=== PATIENT | male | born 1955 | race Caucasian/White ===

== ENCOUNTER 2022-04-21 10:53 | Inpatient (IN) ==
[2022-04-21 12:11] LABS: Basophils % 0.3 %; Eosinophils # 0.1 K/mcL (0.0-0.6); Eosinophils % 0.6 %; Hematocrit 36.2 % (37.5-50.1); Hemoglobin 12.1 g/dL (12.9-16.9); Immature Granulocytes % 0.6 % (0-4); Lymphocytes # 0.6 K/mcL (0.6-4.6); Lymphocytes % 5.4 %; Mean Corpuscular HGB Conc 33.4 g/dL (31.6-35.5); Mean Corpuscular Hemoglobin 31.1 pg (28.0-33.3); Mean Corpuscular Volume 93.1 fL (83.0-100.0); Mean Platelet Volume 10.4 fL (9.4-12.4); Monocytes # 0.7 K/mcL (0.0-1.3); Neutrophils # 10.1 K/mcL (1.6-8.9); Platelet Count 369 K/mcL (140-400); Red Blood Count 3.89 M/mcL (4.19-5.50); Red Cell Distribution Width 13.6 % (11.5-14.5); Segmented Neutrophils % 87.1 %; White Blood Count 11.6 K/mcL (4.3-11.1)
[2022-04-21 12:38] LABS: Calcium 9.1 mg/dL (8.6-10.3); Potassium 4.4 mEq/L (3.5-5.1); Troponin I 0.03 ng/mL (< 0.04)
[2022-04-21] MEDS ORDERED: Iopamidol - 370 500 ML MLS IVP ONE (13:25)
[2022-04-21 13:56] LABS: INR 2.4; Prothrombin Time 26.7 Seconds (9.4-12.1)
[2022-04-21 14:46] LABS: VBG HCO3 14 mEq/L (21-27); VBG PCO2 31 mmHg (41-51); VBG PH 7.24 pH Units (7.32-7.42); VBG PO2 38 mmHg (25-50)
[2022-04-21] MEDS ORDERED: Ondansetron 4 MG/2 ML VIAL IVP PRN (15:00)
[2022-04-21] MEDS ORDERED: Acetaminophen 325 MG TABLET PO PRN (15:00)
[2022-04-21] MEDS ORDERED: Naloxone 0.4 MG/ML INJ IVP PRN (15:00)
[2022-04-21] MEDS ORDERED: Sodium Bicarbonate 150 MEQ in Water for inj. (sterile) 1,000 ML IVC SCH (15:00)
[2022-04-21] MEDS ORDERED: Melatonin 3 MG TABLET PO PRN (15:00)
[2022-04-21] MEDS: *HR* Heparin 5,000 UNIT/ML VIAL SQ SCH ×2 (15:40→21:13)
[2022-04-21] MEDS: Dexamethasone Sodium Phos/PF 10 MG/ML VIAL IVP SCH (15:41)
[2022-04-21 18:48] LABS: Albumin 3.4 g/dL (3.5-5.7); Albumin/Globulin Ratio 0.9 (1.1-2.2); Bilirubin,Direct 0.1 mg/dL (0.0-0.2); Bilirubin,Indirect 0.6 mg/dL (0.0-1.0); Bilirubin,Total 0.7 mg/dL (0.3-1.0); Total Protein 7.4 g/dL (6.4-8.9)
[2022-04-21] MEDS ORDERED: cefTRIAXone 1,000 MG in 0.9 % Sodium Chloride 10 ML IVP SCH (21:00)
[2022-04-21] MEDS ORDERED: Azithromycin 500 MG in 0.9 % Sodium Chloride 250 ML IVPB SCH (21:00)
[2022-04-22] MEDS: *HR* Heparin 5,000 UNIT/ML VIAL SQ SCH ×3 (05:58→21:18)
[2022-04-22] MEDS: Dexamethasone Sodium Phos/PF 10 MG/ML VIAL IVP SCH ×2 (09:32→13:55)
[2022-04-22] MEDS: Azithromycin 250 MG TABLET PO SCH (09:32)
[2022-04-22] MEDS: Cefdinir 300 MG CAPSULE PO SCH (10:20)
[2022-04-22 11:02] LABS: Prothrombin Time 22.5 Seconds (9.4-12.1)
[2022-04-22 11:56] LABS: Calcium 8.7 mg/dL (8.6-10.3); Magnesium 2.8 mg/dL (1.6-2.6); Phosphorous 4.3 mg/dL (2.7-4.5)
[2022-04-23 03:59] LABS: Calcium 8.3 mg/dL (8.6-10.3); Potassium 4.1 mEq/L (3.5-5.1)
[2022-04-23] MEDS: *HR* Heparin 5,000 UNIT/ML VIAL SQ SCH (05:21)
[2022-04-23] MEDS: Cefdinir 300 MG CAPSULE PO SCH (09:43)
[2022-04-23] MEDS: Azithromycin 250 MG TABLET PO SCH (09:43)
[2022-04-23] MEDS: Dexamethasone Sodium Phos/PF 10 MG/ML VIAL IVP SCH (09:44)
[2022-04-23] MEDS: Valsartan 80 MG TABLET PO SCH (18:27)
[2022-04-23] MEDS: amLODIPine 5 MG TABLET PO SCH (18:29)
[2022-04-23] MEDS: Apixaban 5 MG TABLET PO SCH (22:20)
[2022-04-24 03:44] VITALS: BP 94/63; PULSE 55; TEMP 97.8; O2SAT 94
[2022-04-24 05:25] LABS: Calcium 8.5 mg/dL (8.6-10.3); Potassium 4.7 mEq/L (3.5-5.1)
[2022-04-24] MEDS ORDERED: allopurinoL 300 MG TABLET PO SCH (09:00)
[2022-04-24] MEDS ORDERED: Aspirin Enteric Coated 81 MG Tablet PO SCH (09:00)
[2022-04-24] MEDS: amLODIPine 5 MG TABLET PO SCH (09:24)
[2022-04-24] MEDS: Azithromycin 250 MG TABLET PO SCH (09:24)
[2022-04-24] MEDS: Cefdinir 300 MG CAPSULE PO SCH (09:24)
[2022-04-24] MEDS: Apixaban 5 MG TABLET PO SCH (09:25)
[2022-04-24] MEDS: Valsartan 80 MG TABLET PO SCH (09:26)
[2022-04-24] MEDS ORDERED: Valsartan 80 MG TABLET PO SCH (18:00)
== END 2022-04-24 17:07 | disposition home or self-care (01) | DRG 177 ==
LOC: EMEROOARM 10:53 → 3NENU 10:53
PROVIDERS: ADMIT Internal Medicine; ATTEND Internal Medicine

== ENCOUNTER 2022-05-17 01:14 | Inpatient (IN) ==
[2022-05-17] MEDS ORDERED: Acetaminophen 325 MG TABLET PO PRN (03:39)
[2022-05-17] MEDS ORDERED: *HR* HYDROcodone/Acet 5/325 mg TABLET PO PRN (03:39)
[2022-05-17] MEDS ORDERED: Naloxone 0.4 MG/ML INJ IVP PRN (03:39)
[2022-05-17] MEDS ORDERED: Dextrose Gel 15 GM/37.5 ML TUBE PO PRN ×4 (03:43→17:42)
[2022-05-17] MEDS ORDERED: *HR* Dextrose 50 % in Water (Syg) 50 ML SYRINGE IVP PRN ×2 (03:43→17:42)
[2022-05-17] MEDS ORDERED: D5% in Water 1,000 ML IVC PRN ×2 (03:43→17:42)
[2022-05-17] MEDS: Cefepime HCl 2,000 MG in 0.9 % Sodium Chloride 10 ML IVP SCH ×2 (05:39→17:31)
[2022-05-17] MEDS ORDERED: Furosemide 40 MG/4 ML VIAL IVP ONE (05:56)
[2022-05-17 06:32] LABS: Basophils % 0.4 %; Eosinophils # 0.1 K/mcL (0.0-0.6); Eosinophils % 1.8 %; Hemoglobin 7.2 g/dL (12.9-16.9); Immature Granulocytes % 1.3 % (0-4); Lymphocytes # 0.9 K/mcL (0.6-4.6); Lymphocytes % 12.3 %; Mean Corpuscular Hemoglobin 30.5 pg (28.0-33.3); Mean Corpuscular Volume 101.7 fL (83.0-100.0); Mean Platelet Volume 11.3 fL (9.4-12.4); Monocytes # 0.6 K/mcL (0.0-1.3); Monocytes % 8.9 %; Neutrophils # 5.3 K/mcL (1.6-8.9); Nucleated Red Blood Cells 0.7 /100 WBC (0); Platelet Count 354 K/mcL (140-400); Red Blood Count 2.36 M/mcL (4.19-5.50); Red Cell Distribution Width 16.7 % (11.5-14.5); Segmented Neutrophils % 75.3 %; White Blood Count 7.1 K/mcL (4.3-11.1)
[2022-05-17] MEDS ORDERED: *HR* Heparin 5,000 UNIT/ML VIAL IVP PRN (06:39)
[2022-05-17 06:42] LABS: INR 1.5; Prothrombin Time 17.2 Seconds (9.4-12.1)
[2022-05-17 06:44] LABS: Activated Partial Thrombo Time 34.4 Seconds (26.0-36.0)
[2022-05-17] MEDS ORDERED: Heparin 25,000UNIT/250ML 1/2NS 25,000 UNIT/250 ML IV.SOLN IVC SCH (06:45)
[2022-05-17 06:49] LABS: Albumin/Globulin Ratio 0.8 (1.1-2.2); Bilirubin,Direct 0.2 mg/dL (0.0-0.2); Bilirubin,Indirect 0.4 mg/dL (0.0-1.0); Bilirubin,Total 0.6 mg/dL (0.3-1.0); Calcium 8.8 mg/dL (8.6-10.3); Globulin 3.6 g/dL (2.4-3.5); Phosphorous 4.7 mg/dL (2.7-4.5); Potassium 4.3 mEq/L (3.5-5.1); Total Protein 6.6 g/dL (6.4-8.9); Troponin I 2.17 ng/mL (< 0.04)
[2022-05-17] MEDS: Heparin 25,000UNIT/250ML 1/2NS 25,000 UNIT/250 ML IV.SOLN IVC SCH (07:43)
[2022-05-17] MEDS: Ipratropium/Albuterol Neb 3 ML IH SCH ×4 (07:57→19:59)
[2022-05-17] MEDS ORDERED: Furosemide 40 MG/4 ML VIAL IVP SCH ×2 (08:00→16:00)
[2022-05-17 08:05] LABS: Hematocrit 25.2 % (37.5-50.1); Hemoglobin 7.6 g/dL (12.9-16.9); Mean Corpuscular HGB Conc 30.2 g/dL (31.6-35.5); Mean Corpuscular Hemoglobin 30.8 pg (28.0-33.3); Mean Platelet Volume 10.5 fL (9.4-12.4); Platelet Count 344 K/mcL (140-400); Red Blood Count 2.47 M/mcL (4.19-5.50); Red Cell Distribution Width 16.8 % (11.5-14.5)
[2022-05-17 08:15] LABS: Heparin anti-factor XA UFH 0.85 IU/mL (0.30-0.70); INR 1.6; Prothrombin Time 17.5 Seconds (9.4-12.1)
[2022-05-17] MEDS ORDERED: MethylPREDNISolone 40 MG/ML VIAL IVP ONE (09:35)
[2022-05-17] MEDS: Insulin LISPRO 300 UNITS/3 ML VIAL SUBQ SCH ×3 (10:47→22:13)
[2022-05-17] MEDS: Doxycycline 100 MG CAPSULE PO SCH ×2 (10:52→21:42)
[2022-05-17 11:43] LABS: Adenovirus Not Detected (Not Detect); Bordetella Pertussis Not Detected (Not Detect); Chlamydophila pneumoniae Not Detected (Not Detect); Coronavirus 229E Not Detected (Not Detect); Coronavirus HKU1 Not Detected (Not Detect); Coronavirus NL63 Not Detected (Not Detect); Coronavirus OC43 Not Detected (Not Detect); Human Metapneumovirus Not Detected (Not Detect); Human Rhinovirus/Enterovirus Not Detected (Not Detect); Influenza A Subtype 2009 H1 Not Detected (Not Detect); Influenza B Not Detected (Not Detect); Mycoplasma pneumoniae Not Detected (Not Detect); Parainfluenza Virus 1 Not Detected (Not Detect); Parainfluenza Virus 2 Not Detected (Not Detect); Parainfluenza Virus 3 Not Detected (Not Detect); Parainfluenza Virus 4 Not Detected (Not Detect); Respiratory Syncytial Virus Not Detected (Not Detect); SARS-CoV-2 Not Detected (Not Detect)
[2022-05-17 12:39] LABS: Hematocrit 23.2 % (37.5-50.1); Hemoglobin 7.2 g/dL (12.9-16.9)
[2022-05-17] MEDS: Furosemide 40 MG/4 ML VIAL IVP SCH ×2 (14:53→21:42)
[2022-05-17 17:35] LABS: % Iron Saturation 5 % (20-55); Iron 12 mcg/dL (65-175); Transferrin 175 mg/dL (203-362)
[2022-05-17 19:01] LABS: Hematocrit 22.2 % (37.5-50.1); Hemoglobin 6.8 g/dL (12.9-16.9)
[2022-05-17] MEDS: *HR* Heparin 5,000 UNIT/ML VIAL IVP PRN (22:00)
[2022-05-17] MEDS ORDERED: 0.9 % Sodium Chloride 250 ML ONE (23:00)
[2022-05-18] MEDS: Ipratropium/Albuterol Neb 3 ML IH SCH ×6 (00:02→20:23)
[2022-05-18] MEDS: Heparin 25,000UNIT/250ML 1/2NS 25,000 UNIT/250 ML IV.SOLN IVC SCH ×3 (03:41→17:29)
[2022-05-18 04:58] LABS: Basophils % 0.1 %; Hematocrit 23.1 % (37.5-50.1); Hemoglobin 7.1 g/dL (12.9-16.9); Immature Granulocytes % 0.6 % (0-4); Lymphocytes # 0.9 K/mcL (0.6-4.6); Lymphocytes % 10.6 %; Mean Corpuscular HGB Conc 30.7 g/dL (31.6-35.5); Mean Corpuscular Volume 97.5 fL (83.0-100.0); Mean Platelet Volume 10.8 fL (9.4-12.4); Monocytes # 0.6 K/mcL (0.0-1.3); Monocytes % 7.2 %; Neutrophils # 7.2 K/mcL (1.6-8.9); Platelet Count 338 K/mcL (140-400); Red Blood Count 2.37 M/mcL (4.19-5.50); Red Cell Distribution Width 17.2 % (11.5-14.5); Segmented Neutrophils % 81.5 %; White Blood Count 8.8 K/mcL (4.3-11.1)
[2022-05-18 05:19] LABS: Albumin 2.9 g/dL (3.5-5.7); Albumin/Globulin Ratio 0.9 (1.1-2.2); Bilirubin,Direct 0.1 mg/dL (0.0-0.2); Bilirubin,Indirect 0.6 mg/dL (0.0-1.0); Bilirubin,Total 0.7 mg/dL (0.3-1.0); Calcium 7.8 mg/dL (8.6-10.3); Globulin 3.4 g/dL (2.4-3.5); Magnesium 1.9 mg/dL (1.6-2.6); Potassium 4.4 mEq/L (3.5-5.1); Total Protein 6.3 g/dL (6.4-8.9)
[2022-05-18] MEDS: Furosemide 40 MG/4 ML VIAL IVP SCH ×3 (06:13→22:17)
[2022-05-18] MEDS: Cefepime HCl 2,000 MG in 0.9 % Sodium Chloride 10 ML IVP SCH ×2 (06:14→17:35)
[2022-05-18 07:56] LABS: Hematocrit 22.2 % (37.5-50.1); Hemoglobin 6.8 g/dL (12.9-16.9)
[2022-05-18] MEDS: Doxycycline 100 MG CAPSULE PO SCH ×2 (08:11→22:18)
[2022-05-18] MEDS: Insulin LISPRO 300 UNITS/3 ML VIAL SUBQ SCH ×4 (08:12→22:37)
[2022-05-18 10:14] LABS: Estimated Average Glucose 120 mg/dl; Hemoglobin A1C 5.8 %
[2022-05-18] MEDS: Metoprolol XL (24 HR) Succ 25 MG TAB.ER.24H PO SCH (10:19)
[2022-05-18] MEDS ORDERED: Furosemide 40 MG/4 ML VIAL IVP SCH (11:15)
[2022-05-18 12:04] LABS: Hematocrit 24.9 % (37.5-50.1); Hemoglobin 7.5 g/dL (12.9-16.9)
[2022-05-18] MEDS: Pantoprazole 40 MG VIAL IVP SCH ×2 (13:01→22:17)
[2022-05-18] MEDS ORDERED: SODIUM CHLORIDE/NAHCO3/KCL/PEG 4,000 ML SOLN.RECON PO ONE (15:06)
[2022-05-18 18:25] LABS: Hematocrit 26.8 % (37.5-50.1); Hemoglobin 8.4 g/dL (12.9-16.9)
[2022-05-18 18:34] LABS: ABG Base Excess -2 mEq/L (-2 to 3); ABG HCO3 22 mEq/L (21-27); ABG Oxygen Saturation 47 % (95-98); ABG PCO2 32 mmHg (35-45); ABG PH 7.44 pH Units (7.32-7.45); ABG PO2 24 mmHg (85-104); ABG TCO2 23 mEq/L (20-26); Blood Gas Modality BiLevel
[2022-05-18] MEDS: *HR* Heparin 5,000 UNIT/ML VIAL IVP PRN (23:25)
[2022-05-19] MEDS: Ipratropium/Albuterol Neb 3 ML IH SCH ×6 (00:55→20:14)
[2022-05-19] MEDS: Cefepime HCl 2,000 MG in 0.9 % Sodium Chloride 10 ML IVP SCH ×2 (06:07→18:26)
[2022-05-19] MEDS: Heparin 25,000UNIT/250ML 1/2NS 25,000 UNIT/250 ML IV.SOLN IVC SCH (06:54)
[2022-05-19 07:06] LABS: Basophils % 0.1 %; Eosinophils % 0.1 %; Hematocrit 26.3 % (37.5-50.1); Hemoglobin 8.2 g/dL (12.9-16.9); Lymphocytes # 0.9 K/mcL (0.6-4.6); Lymphocytes % 8.1 %; Mean Corpuscular HGB Conc 31.2 g/dL (31.6-35.5); Mean Corpuscular Hemoglobin 29.8 pg (28.0-33.3); Mean Corpuscular Volume 95.6 fL (83.0-100.0); Mean Platelet Volume 10.8 fL (9.4-12.4); Monocytes % 8.8 %; Nucleated Red Blood Cells 0.4 /100 WBC (0); Platelet Count 474 K/mcL (140-400); Red Blood Count 2.75 M/mcL (4.19-5.50); Red Cell Distribution Width 17.6 % (11.5-14.5); Segmented Neutrophils % 81.9 %
[2022-05-19 07:23] LABS: Albumin 3.1 g/dL (3.5-5.7); Albumin/Globulin Ratio 0.9 (1.1-2.2); Bilirubin,Direct 0.2 mg/dL (0.0-0.2); Bilirubin,Indirect 0.6 mg/dL (0.0-1.0); Bilirubin,Total 0.8 mg/dL (0.3-1.0); Calcium 7.5 mg/dL (8.6-10.3); Globulin 3.5 g/dL (2.4-3.5); Magnesium 1.6 mg/dL (1.6-2.6); Potassium 4.6 mEq/L (3.5-5.1); Total Protein 6.6 g/dL (6.4-8.9)
[2022-05-19] MEDS: Insulin LISPRO 300 UNITS/3 ML VIAL SUBQ SCH ×4 (09:23→20:42)
[2022-05-19] MEDS: Metoprolol XL (24 HR) Succ 25 MG TAB.ER.24H PO SCH (09:31)
[2022-05-19] MEDS: Pantoprazole 40 MG VIAL IVP SCH ×2 (09:32→20:43)
[2022-05-19] MEDS: Furosemide 40 MG/4 ML VIAL IVP SCH ×3 (09:33→20:42)
[2022-05-19] MEDS: Doxycycline 100 MG CAPSULE PO SCH ×2 (09:33→20:43)
[2022-05-19] MEDS ORDERED: Iopamidol - 370 200 ML INFUS..BTL ONE (12:20)
[2022-05-19] MEDS ORDERED: 0.9 % Sodium Chloride 2,000 ML ONE (12:20)
[2022-05-19] MEDS ORDERED: Heparin 1,000 UNITS/500 mL 500 ML ONE (12:20)
[2022-05-19] MEDS ORDERED: *HR* Heparin 10,000 UNIT/10 ML VIAL ONE (12:20)
[2022-05-19] MEDS ORDERED: Nitroglycerin 1,000 MCG/5 ML VIAL IV ONE (12:21)
[2022-05-19] MEDS ORDERED: *HR* Midazolam HCl 2 MG/2 ML VIAL ONE (12:35)
[2022-05-19] MEDS ORDERED: *HR* FentaNYL (PF) 100 MCG/2 ML VIAL ONE (12:35)
[2022-05-19] MEDS ORDERED: Dexmedetomidine HCl 400 MCG/100 ML MLS IVC ONE (15:29)
[2022-05-19] MEDS ORDERED: *HR* Propofol 200 MG/20 ML VIAL IVP ONE (15:58)
[2022-05-19] MEDS ORDERED: Lidocaine -MPF 2% 2 ML VIAL ONE (16:00)
[2022-05-19] MEDS ORDERED: EPHEDrine sulfate 50 MG/10 ML VIAL IVP ONE (16:29)
[2022-05-19] MEDS ORDERED: *HR* EPINEPHrine 1 MG/10 ML SYRINGE INTRATRACH PRN (16:32)
[2022-05-19] MEDS ORDERED: Simethicone 40 MG/0.6 ML MLS ONE (16:57)
[2022-05-19] MEDS ORDERED: Simethicone 40 MG/0.6 ML MLS IR ONE (16:59)
[2022-05-19] MEDS ORDERED: *HR* Etomidate 40 MG/20 ML VIAL IVP ONE (17:06)
[2022-05-19] MEDS ORDERED: *HR* EPINEPHrine 1 MG/10 ML SYRINGE ONE (17:40)
[2022-05-19 20:12] LABS: INR 1.7; Prothrombin Time 18.8 Seconds (9.4-12.1)
[2022-05-19 20:44] LABS: Hematocrit 20.1 % (37.5-50.1); Mean Corpuscular HGB Conc 31.3 g/dL (31.6-35.5); Mean Corpuscular Hemoglobin 29.6 pg (28.0-33.3); Mean Corpuscular Volume 94.4 fL (83.0-100.0); Mean Platelet Volume 10.8 fL (9.4-12.4); Platelet Count 349 K/mcL (140-400); Red Blood Count 2.13 M/mcL (4.19-5.50); Red Cell Distribution Width 17.3 % (11.5-14.5); White Blood Count 7.8 K/mcL (4.3-11.1)
[2022-05-19 20:51] LABS: Hemoglobin 6.3 g/dL (12.9-16.9)
[2022-05-20] MEDS: Ipratropium/Albuterol Neb 3 ML IH SCH ×7 (00:15→23:21)
[2022-05-20] MEDS: Cefepime HCl 2,000 MG in 0.9 % Sodium Chloride 10 ML IVP SCH ×2 (05:07→16:58)
[2022-05-20] MEDS: Heparin 25,000UNIT/250ML 1/2NS 25,000 UNIT/250 ML IV.SOLN IVC SCH ×2 (05:35→20:14)
[2022-05-20 06:41] LABS: Basophils % 0.4 %; Eosinophils # 0.4 K/mcL (0.0-0.6); Eosinophils % 4.6 %; Hematocrit 25.6 % (37.5-50.1); Lymphocytes # 1.2 K/mcL (0.6-4.6); Lymphocytes % 14.8 %; Mean Corpuscular HGB Conc 31.3 g/dL (31.6-35.5); Mean Corpuscular Hemoglobin 29.5 pg (28.0-33.3); Mean Corpuscular Volume 94.5 fL (83.0-100.0); Monocytes # 0.8 K/mcL (0.0-1.3); Neutrophils # 5.4 K/mcL (1.6-8.9); Nucleated Red Blood Cells 0.6 /100 WBC (0); Platelet Count 353 K/mcL (140-400); Red Blood Count 2.71 M/mcL (4.19-5.50); Red Cell Distribution Width 16.8 % (11.5-14.5); Segmented Neutrophils % 68.2 %; White Blood Count 7.9 K/mcL (4.3-11.1)
[2022-05-20 07:04] LABS: Albumin 2.7 g/dL (3.5-5.7); Albumin/Globulin Ratio 0.9 (1.1-2.2); Bilirubin,Direct 0.4 mg/dL (0.0-0.2); Bilirubin,Total 1.4 mg/dL (0.3-1.0); Calcium 7.3 mg/dL (8.6-10.3); Magnesium 1.8 mg/dL (1.6-2.6); Potassium 3.6 mEq/L (3.5-5.1); Total Protein 5.7 g/dL (6.4-8.9)
[2022-05-20] MEDS: Pantoprazole 40 MG VIAL IVP SCH ×2 (08:09→20:49)
[2022-05-20] MEDS: Metoprolol XL (24 HR) Succ 25 MG TAB.ER.24H PO SCH (08:11)
[2022-05-20] MEDS: Furosemide 40 MG/4 ML VIAL IVP SCH ×3 (08:11→20:49)
[2022-05-20] MEDS: Doxycycline 100 MG CAPSULE PO SCH ×2 (08:12→20:48)
[2022-05-20] MEDS: Insulin LISPRO 300 UNITS/3 ML VIAL SUBQ SCH ×4 (10:29→19:51)
[2022-05-20 12:41] LABS: Hematocrit 24.5 % (37.5-50.1); Hemoglobin 7.9 g/dL (12.9-16.9)
[2022-05-20 17:05] LABS: Bilirubin,Urine Negative (Negative); Blood,Urine Trace (Negative); Clarity,Urine Clear (Clear); Color,Urine LIGHT YELLOW (Yellow); Glucose,Urine (UA) Normal (Normal); Ketones,Urine Negative (Negative); Leukocyte Esterase,Urine Negative (Negative); Nitrite,Urine Negative (Negative); PH,Urine 6.5 pH Units (5.0-8.0); Protein,Urine 30 mg/dL (Neg-Trace); Specific Gravity,Urine < 1.005 (1.010-1.025); Urobilinogen,Urine Normal (Normal)
[2022-05-20 17:47] LABS: Bacteria,Urine Present per hpf (None-Few); Mucus,Urine Present per lpf (None-Few); Transitional Epi Cells,Urine Present per hpf (None-Few)
[2022-05-20 17:48] LABS: RBC,Urine Present per hpf (0-3); WBC,Urine Present per hpf (0-3)
[2022-05-20 17:49] LABS: Squamous Epithelial Cell,Urine Present per hpf (None-Few)
[2022-05-20 18:28] LABS: Hematocrit 23.4 % (37.5-50.1); Hemoglobin 7.5 g/dL (12.9-16.9)
[2022-05-21 02:43] LABS: Basophils # 0.1 K/mcL (0.0-0.2); Basophils % 0.5 %; Eosinophils # 0.8 K/mcL (0.0-0.6); Eosinophils % 8.7 %; Hematocrit 23.2 % (37.5-50.1); Hemoglobin 7.4 g/dL (12.9-16.9); Immature Granulocytes % 4.6 % (0-4); Lymphocytes # 1.5 K/mcL (0.6-4.6); Lymphocytes % 16.6 %; Mean Corpuscular HGB Conc 31.9 g/dL (31.6-35.5); Mean Corpuscular Hemoglobin 29.7 pg (28.0-33.3); Mean Corpuscular Volume 93.2 fL (83.0-100.0); Mean Platelet Volume 10.8 fL (9.4-12.4); Monocytes # 0.8 K/mcL (0.0-1.3); Monocytes % 8.4 %; Neutrophils # 5.6 K/mcL (1.6-8.9); Nucleated Red Blood Cells 1.4 /100 WBC (0); Platelet Count 330 K/mcL (140-400); Red Blood Count 2.49 M/mcL (4.19-5.50); Red Cell Distribution Width 16.6 % (11.5-14.5); Segmented Neutrophils % 61.2 %; White Blood Count 9.2 K/mcL (4.3-11.1)
[2022-05-21] MEDS: Ipratropium/Albuterol Neb 3 ML IH SCH ×6 (04:01→22:43)
[2022-05-21 05:32] LABS: Albumin 2.6 g/dL (3.5-5.7); Albumin/Globulin Ratio 0.9 (1.1-2.2); Bilirubin,Direct 0.2 mg/dL (0.0-0.2); Bilirubin,Indirect 0.5 mg/dL (0.0-1.0); Bilirubin,Total 0.7 mg/dL (0.3-1.0); Calcium 7.2 mg/dL (8.6-10.3); Globulin 2.9 g/dL (2.4-3.5); Magnesium 1.7 mg/dL (1.6-2.6); Potassium 3.4 mEq/L (3.5-5.1); Total Protein 5.5 g/dL (6.4-8.9)
[2022-05-21] MEDS: Cefepime HCl 2,000 MG in 0.9 % Sodium Chloride 10 ML IVP SCH ×2 (06:32→17:52)
[2022-05-21 07:33] LABS: Folate 7.7 ng/mL (3.0-16.0)
[2022-05-21] MEDS: Insulin LISPRO 300 UNITS/3 ML VIAL SUBQ SCH ×4 (07:48→19:46)
[2022-05-21] MEDS: Furosemide 40 MG/4 ML VIAL IVP SCH (08:33)
[2022-05-21] MEDS: Pantoprazole 40 MG VIAL IVP SCH ×2 (08:33→19:47)
[2022-05-21] MEDS: Doxycycline 100 MG CAPSULE PO SCH ×2 (08:34→19:47)
[2022-05-21] MEDS: Metoprolol XL (24 HR) Succ 25 MG TAB.ER.24H PO SCH (08:34)
[2022-05-21] MEDS: Heparin 25,000UNIT/250ML 1/2NS 25,000 UNIT/250 ML IV.SOLN IVC SCH (09:54)
[2022-05-21] MEDS ORDERED: Aspirin 325 MG TABLET ONE (13:25)
[2022-05-21] MEDS ORDERED: *HR* Midazolam HCl 2 MG/2 ML VIAL ONE (13:34)
[2022-05-21] MEDS ORDERED: *HR* FentaNYL (PF) 100 MCG/2 ML VIAL ONE (13:34)
[2022-05-21] MEDS ORDERED: *HR* Heparin 10,000 UNIT/10 ML VIAL ONE ×2 (13:43→15:36)
[2022-05-21] MEDS ORDERED: 0.9 % Sodium Chloride 2,000 ML ONE (15:36)
[2022-05-21] MEDS ORDERED: Iopamidol - 370 200 ML INFUS..BTL ONE (15:36)
[2022-05-21] MEDS ORDERED: Heparin 1,000 UNITS/500 mL 500 ML ONE (15:36)
[2022-05-21] MEDS ORDERED: Nitroglycerin 1,000 MCG/5 ML VIAL IV ONE (15:36)
[2022-05-21] MEDS: *HR* Acetylcysteine 20% 600 MG/3 ML ORAL SYRINGE PO SCH ×2 (16:56→20:57)
[2022-05-21] MEDS: Aspirin 81 MG TAB.CHEW PO SCH (19:47)
[2022-05-22] MEDS: Ipratropium/Albuterol Neb 3 ML IH SCH ×6 (04:07→23:38)
[2022-05-22] MEDS: Cefepime HCl 2,000 MG in 0.9 % Sodium Chloride 10 ML IVP SCH ×2 (06:16→17:12)
[2022-05-22] MEDS: Insulin LISPRO 300 UNITS/3 ML VIAL SUBQ SCH ×4 (08:02→19:33)
[2022-05-22] MEDS: Aspirin 81 MG TAB.CHEW PO SCH (08:03)
[2022-05-22] MEDS: Metoprolol XL (24 HR) Succ 25 MG TAB.ER.24H PO SCH (08:03)
[2022-05-22] MEDS: Doxycycline 100 MG CAPSULE PO SCH ×2 (08:03→20:23)
[2022-05-22] MEDS: Pantoprazole 40 MG VIAL IVP SCH ×2 (08:04→20:22)
[2022-05-22 08:24] LABS: Basophils # 0.1 K/mcL (0.0-0.2); Basophils % 0.6 %; Eosinophils # 0.6 K/mcL (0.0-0.6); Eosinophils % 6.7 %; Hematocrit 25.2 % (37.5-50.1); Hemoglobin 7.9 g/dL (12.9-16.9); Immature Granulocytes % 3.4 % (0-4); Lymphocytes # 1.2 K/mcL (0.6-4.6); Lymphocytes % 13.8 %; Mean Corpuscular HGB Conc 31.3 g/dL (31.6-35.5); Mean Corpuscular Volume 95.8 fL (83.0-100.0); Mean Platelet Volume 10.4 fL (9.4-12.4); Monocytes % 11.1 %; Neutrophils # 5.7 K/mcL (1.6-8.9); Nucleated Red Blood Cells 0.3 /100 WBC (0); Platelet Count 355 K/mcL (140-400); Red Blood Count 2.63 M/mcL (4.19-5.50); Red Cell Distribution Width 16.8 % (11.5-14.5); Segmented Neutrophils % 64.4 %; White Blood Count 8.8 K/mcL (4.3-11.1)
[2022-05-22 09:04] LABS: Albumin 2.8 g/dL (3.5-5.7); Albumin/Globulin Ratio 0.8 (1.1-2.2); Bilirubin,Direct 0.2 mg/dL (0.0-0.2); Bilirubin,Indirect 0.4 mg/dL (0.0-1.0); Bilirubin,Total 0.6 mg/dL (0.3-1.0); Globulin 3.6 g/dL (2.4-3.5); Potassium 3.8 mEq/L (3.5-5.1); Total Protein 6.4 g/dL (6.4-8.9)
[2022-05-22] MEDS: *HR* Acetylcysteine 20% 600 MG/3 ML ORAL SYRINGE PO SCH ×2 (10:17→20:23)
[2022-05-22] MEDS: Fluticasone Propionate Nasal 50 MCG/SPRAY BOTTLE NS SCH (11:04)
[2022-05-22] MEDS ORDERED: Saline Nasal Spray 44 ML BOTTLE NS ONE (12:30)
[2022-05-22] MEDS: Apixaban 5 MG TABLET PO SCH (20:23)
[2022-05-22] MEDS: Furosemide 40 MG TABLET PO SCH (20:27)
[2022-05-23 02:53] LABS: Basophils # 0.1 K/mcL (0.0-0.2); Basophils % 0.6 %; Eosinophils # 0.6 K/mcL (0.0-0.6); Eosinophils % 6.5 %; Hematocrit 24.1 % (37.5-50.1); Hemoglobin 7.5 g/dL (12.9-16.9); Immature Granulocytes % 4.1 % (0-4); Lymphocytes # 1.2 K/mcL (0.6-4.6); Lymphocytes % 12.6 %; Mean Corpuscular HGB Conc 31.1 g/dL (31.6-35.5); Mean Corpuscular Volume 96.4 fL (83.0-100.0); Mean Platelet Volume 10.6 fL (9.4-12.4); Monocytes # 1.1 K/mcL (0.0-1.3); Monocytes % 11.7 %; Neutrophils # 6.3 K/mcL (1.6-8.9); Nucleated Red Blood Cells 0.3 /100 WBC (0); Platelet Count 349 K/mcL (140-400); Red Cell Distribution Width 16.4 % (11.5-14.5); Segmented Neutrophils % 64.5 %; White Blood Count 9.7 K/mcL (4.3-11.1)
[2022-05-23 03:09] LABS: Calcium 8.2 mg/dL (8.6-10.3); Potassium 3.4 mEq/L (3.5-5.1)
[2022-05-23] MEDS: Ipratropium/Albuterol Neb 3 ML IH SCH ×4 (04:04→15:24)
[2022-05-23] MEDS: Apixaban 5 MG TABLET PO SCH (08:55)
[2022-05-23] MEDS: Furosemide 40 MG TABLET PO SCH (08:55)
[2022-05-23] MEDS: *HR* Acetylcysteine 20% 600 MG/3 ML ORAL SYRINGE PO SCH (08:55)
[2022-05-23] MEDS: Insulin LISPRO 300 UNITS/3 ML VIAL SUBQ SCH ×2 (08:55→12:37)
[2022-05-23] MEDS: Doxycycline 100 MG CAPSULE PO SCH (08:56)
[2022-05-23] MEDS: Fluticasone Propionate Nasal 50 MCG/SPRAY BOTTLE NS SCH (08:56)
[2022-05-23] MEDS: Metoprolol XL (24 HR) Succ 25 MG TAB.ER.24H PO SCH (08:56)
[2022-05-23] MEDS ORDERED: Cefdinir 300 MG CAPSULE PO SCH (09:00)
[2022-05-23 09:11] VITALS: PULSE 61
[2022-05-23 11:10] VITALS: BP 109/60; TEMP 98; O2SAT 98
== END 2022-05-23 15:47 | disposition home or self-care (01) | DRG 246 ==
LOC: ICNU → SUATTDRO 03:39 → 2ANU 05-18 17:12 → 2NNU 05-18 20:27
PROVIDERS: ADMIT Internal Medicine; ATTEND Student in an Organized Health Care Education/Training Program